=== PATIENT | female | born 1960 | race Caucasian/White ===

== ENCOUNTER 2020-08-08 11:26 | Inpatient (IN) ==
[2020-08-11] MEDS ORDERED: Ondansetron 4 MG/2 ML VIAL IVP PRN (15:25)
[2020-08-11] MEDS ORDERED: Mag Hydrox/Al Hydrox/Simeth 30 ML UDC PO PRN (15:25)
[2020-08-11] MEDS ORDERED: MOM Conc 10 ML UD.LIQ PO PRN (15:25)
[2020-08-11] MEDS ORDERED: Naloxone 0.4 MG/ML INJ IVP PRN (15:25)
[2020-08-11] MEDS ORDERED: Lidocaine TOPICAL Soln 50 ML BOTTLE TP PRN (15:38)
[2020-08-11] MEDS ORDERED: Sennosides 8.6 MG TABLET PO PRN (15:38)
[2020-08-11] MEDS: OXcarbazepine 150 MG TABLET PO SCH (20:53)
[2020-08-11] MEDS: traZODone 50 MG TABLET PO SCH (20:53)
[2020-08-11] MEDS: Melatonin 3 MG TABLET PO PRN (20:53)
[2020-08-11] MEDS: Acetaminophen 325 MG TABLET PO PRN (20:53)
[2020-08-12] MEDS: *HR* Enoxaparin 40 MG/0.4 ML SYRINGE SQ SCH (04:21)
[2020-08-12 05:01] LABS: Basophils % 0.6 %; Eosinophils # 0.2 K/mcL (0.0-0.6); Eosinophils % 3.4 %; Hematocrit 25.4 % (35.3-44.9); Hemoglobin 8.1 g/dL (11.5-15.4); Immature Granulocytes % 0.6 % (0-4); Lymphocytes # 1.5 K/mcL (0.6-4.6); Lymphocytes % 21.4 %; Mean Corpuscular HGB Conc 31.9 g/dL (31.6-35.5); Mean Corpuscular Hemoglobin 30.9 pg (28.0-33.3); Mean Corpuscular Volume 96.9 fL (83.0-100.0); Monocytes # 0.7 K/mcL (0.0-1.3); Monocytes % 9.8 %; Neutrophils # 4.4 K/mcL (1.6-8.9); Platelet Count 220 K/mcL (140-400); Red Blood Count 2.62 M/mcL (3.82-4.97); Red Cell Distribution Width 17.2 % (11.5-14.5); Segmented Neutrophils % 64.2 %; White Blood Count 6.9 K/mcL (4.3-11.1)
[2020-08-12 05:04] LABS: INR 1.1; Prothrombin Time 12.5 Seconds (9.4-12.1)
[2020-08-12 05:14] LABS: Albumin 3.7 g/dL (3.5-5.7); Albumin/Globulin Ratio 1.8 (1.1-2.2); Bilirubin,Total 0.6 mg/dL (0.3-1.0); Calcium 9.3 mg/dL (8.6-10.3); Globulin 2.1 g/dL (2.4-3.5); Magnesium 1.9 mg/dL (1.6-2.6); Phosphorous 5.3 mg/dL (2.7-4.5); Potassium 4.6 mEq/L (3.5-5.1); Total Protein 5.8 g/dL (6.4-8.9)
[2020-08-12] MEDS: OXcarbazepine 150 MG TABLET PO SCH ×2 (08:25→21:29)
[2020-08-12] MEDS: Torsemide 20 MG TABLET PO SCH (08:25)
[2020-08-12] MEDS: Metoprolol XL (24 HR) Succ 50 MG TAB.ER.24H PO SCH (08:25)
[2020-08-12] MEDS: Ascorbic Acid 500 MG TABLET PO SCH (08:26)
[2020-08-12] MEDS: Aspirin Enteric Coated 81 MG Tablet PO SCH (08:26)
[2020-08-12 08:55] LABS: Estimated Average Glucose 105 mg/dl; Hemoglobin A1C 5.3 %
[2020-08-12] MEDS: Ondansetron ODT 4 MG TAB.RAPDIS SL PRN (10:54)
[2020-08-12] MEDS: *HR* HYDROcodone/Acet 5/325 mg TABLET PO PRN (17:03)
[2020-08-12] MEDS: Melatonin 3 MG TABLET PO PRN ×2 (21:29→21:30)
[2020-08-12] MEDS: Acetaminophen 325 MG TABLET PO PRN (21:30)
[2020-08-12] MEDS: traZODone 50 MG TABLET PO SCH (21:30)
[2020-08-12 23:31] LABS: Bilirubin,Urine Negative (Negative); Blood,Urine Negative (Negative); Clarity,Urine Slightly Cloudy (Clear); Glucose,Urine (UA) Normal (Normal); Ketones,Urine Negative (Negative); Leukocyte Esterase,Urine Negative (Negative); Nitrite,Urine Negative (Negative); Protein,Urine Negative (Neg-Trace); Specific Gravity,Urine 1.015 (1.010-1.025); Urobilinogen,Urine Normal (Normal)
[2020-08-12 23:32] LABS: Color,Urine Yellow (Yellow)
[2020-08-13] MEDS: *HR* Enoxaparin 40 MG/0.4 ML SYRINGE SQ SCH (04:44)
[2020-08-13] MEDS: Ondansetron ODT 4 MG TAB.RAPDIS SL PRN (07:45)
[2020-08-13] MEDS: OXcarbazepine 150 MG TABLET PO SCH ×2 (07:46→21:14)
[2020-08-13] MEDS: Torsemide 20 MG TABLET PO SCH (07:46)
[2020-08-13] MEDS: Aspirin Enteric Coated 81 MG Tablet PO SCH (07:47)
[2020-08-13] MEDS: Ascorbic Acid 500 MG TABLET PO SCH (07:47)
[2020-08-13] MEDS: Metoprolol XL (24 HR) Succ 50 MG TAB.ER.24H PO SCH (07:47)
[2020-08-13] MEDS: Ondansetron ODT 4 MG TAB.RAPDIS PO PRN (20:21)
[2020-08-13] MEDS: traZODone 50 MG TABLET PO SCH (21:14)
[2020-08-13] MEDS: Melatonin 3 MG TABLET PO PRN ×2 (21:14)
[2020-08-13] MEDS: Acetaminophen 325 MG TABLET PO PRN (21:14)
[2020-08-14] MEDS: *HR* Enoxaparin 40 MG/0.4 ML SYRINGE SQ SCH (05:00)
[2020-08-14] MEDS: Torsemide 20 MG TABLET PO SCH (08:29)
[2020-08-14] MEDS: OXcarbazepine 150 MG TABLET PO SCH ×2 (08:29→20:59)
[2020-08-14] MEDS: Aspirin Enteric Coated 81 MG Tablet PO SCH (08:30)
[2020-08-14] MEDS: Metoprolol XL (24 HR) Succ 50 MG TAB.ER.24H PO SCH (08:30)
[2020-08-14] MEDS: Ascorbic Acid 500 MG TABLET PO SCH (08:30)
[2020-08-14] MEDS: Ondansetron ODT 4 MG TAB.RAPDIS PO PRN ×2 (08:37→17:39)
[2020-08-14] MEDS: Acetaminophen 325 MG TABLET PO PRN ×2 (13:42→21:00)
[2020-08-14] MEDS: traZODone 50 MG TABLET PO SCH (21:00)
[2020-08-14] MEDS: Melatonin 3 MG TABLET PO PRN ×2 (21:00)
[2020-08-15] MEDS: *HR* Enoxaparin 40 MG/0.4 ML SYRINGE SQ SCH (05:29)
[2020-08-15] MEDS: Torsemide 20 MG TABLET PO SCH (09:06)
[2020-08-15] MEDS: Ascorbic Acid 500 MG TABLET PO SCH (09:06)
[2020-08-15] MEDS: OXcarbazepine 150 MG TABLET PO SCH ×2 (09:06→20:51)
[2020-08-15] MEDS: Aspirin Enteric Coated 81 MG Tablet PO SCH (09:07)
[2020-08-15] MEDS: Metoprolol XL (24 HR) Succ 50 MG TAB.ER.24H PO SCH (09:07)
[2020-08-15] MEDS: Ondansetron ODT 4 MG TAB.RAPDIS PO PRN ×2 (09:17→18:25)
[2020-08-15] MEDS: traZODone 50 MG TABLET PO SCH (20:52)
[2020-08-16] MEDS: *HR* Enoxaparin 40 MG/0.4 ML SYRINGE SQ SCH (05:36)
[2020-08-16] MEDS: Ondansetron ODT 4 MG TAB.RAPDIS PO PRN ×2 (08:32→18:11)
[2020-08-16] MEDS: Torsemide 20 MG TABLET PO SCH (08:33)
[2020-08-16] MEDS: Metoprolol XL (24 HR) Succ 50 MG TAB.ER.24H PO SCH (08:33)
[2020-08-16] MEDS: Ascorbic Acid 500 MG TABLET PO SCH (08:34)
[2020-08-16] MEDS: OXcarbazepine 150 MG TABLET PO SCH ×2 (08:34→20:59)
[2020-08-16] MEDS: Aspirin Enteric Coated 81 MG Tablet PO SCH (08:34)
[2020-08-16] MEDS: *HR* HYDROcodone/Acet 5/325 mg TABLET PO PRN (14:55)
[2020-08-16] MEDS: traZODone 50 MG TABLET PO SCH (20:59)
[2020-08-17] MEDS: *HR* Enoxaparin 40 MG/0.4 ML SYRINGE SQ SCH (05:21)
[2020-08-17] MEDS: Aspirin Enteric Coated 81 MG Tablet PO SCH (10:17)
[2020-08-17] MEDS: Metoprolol XL (24 HR) Succ 50 MG TAB.ER.24H PO SCH (10:17)
[2020-08-17] MEDS: OXcarbazepine 150 MG TABLET PO SCH ×2 (10:17→21:21)
[2020-08-17] MEDS: Torsemide 20 MG TABLET PO SCH (10:17)
[2020-08-17] MEDS: Ascorbic Acid 500 MG TABLET PO SCH (10:18)
[2020-08-17] MEDS: Ondansetron ODT 4 MG TAB.RAPDIS PO PRN (10:21)
[2020-08-17] MEDS: Ondansetron ODT 4 MG TAB.RAPDIS SL PRN (17:43)
[2020-08-17] MEDS: traZODone 50 MG TABLET PO SCH (21:21)
[2020-08-18] MEDS: *HR* Enoxaparin 40 MG/0.4 ML SYRINGE SQ SCH (05:23)
[2020-08-18 07:35] LABS: Hematocrit 27.2 % (35.3-44.9); Hemoglobin 8.5 g/dL (11.5-15.4); Mean Corpuscular HGB Conc 31.3 g/dL (31.6-35.5); Mean Corpuscular Hemoglobin 30.5 pg (28.0-33.3); Mean Corpuscular Volume 97.5 fL (83.0-100.0); Mean Platelet Volume 9.7 fL (9.4-12.4); Platelet Count 300 K/mcL (140-400); Red Blood Count 2.79 M/mcL (3.82-4.97); Red Cell Distribution Width 16.2 % (11.5-14.5)
[2020-08-18 07:58] LABS: Albumin 3.6 g/dL (3.5-5.7); Albumin/Globulin Ratio 1.8 (1.1-2.2); Bilirubin,Total 0.5 mg/dL (0.3-1.0); Calcium 9.1 mg/dL (8.6-10.3); Potassium 3.3 mEq/L (3.5-5.1); Total Protein 5.6 g/dL (6.4-8.9)
[2020-08-18] MEDS: Metoprolol XL (24 HR) Succ 50 MG TAB.ER.24H PO SCH (08:14)
[2020-08-18] MEDS: Aspirin Enteric Coated 81 MG Tablet PO SCH (08:15)
[2020-08-18] MEDS: Ascorbic Acid 500 MG TABLET PO SCH (08:16)
[2020-08-18] MEDS: Torsemide 20 MG TABLET PO SCH (08:16)
[2020-08-18] MEDS: Ondansetron ODT 4 MG TAB.RAPDIS PO PRN (08:20)
[2020-08-18] MEDS ORDERED: *HR* LORazepam 0.5 MG TABLET PO PRN (13:46)
[2020-08-18] MEDS: OXcarbazepine 150 MG TABLET PO SCH ×2 (13:49→20:41)
[2020-08-18] MEDS: traZODone 50 MG TABLET PO SCH (20:41)
[2020-08-18] MEDS: Acetaminophen 325 MG TABLET PO PRN (23:54)
[2020-08-19] MEDS: *HR* Enoxaparin 40 MG/0.4 ML SYRINGE SQ SCH (05:46)
[2020-08-19] MEDS: Ascorbic Acid 500 MG TABLET PO SCH (09:08)
[2020-08-19] MEDS: OXcarbazepine 150 MG TABLET PO SCH ×2 (09:12→20:56)
[2020-08-19] MEDS: Torsemide 20 MG TABLET PO SCH (09:12)
[2020-08-19] MEDS: Aspirin Enteric Coated 81 MG Tablet PO SCH (09:12)
[2020-08-19] MEDS: Metoprolol XL (24 HR) Succ 50 MG TAB.ER.24H PO SCH (09:12)
[2020-08-19] MEDS: Ondansetron ODT 4 MG TAB.RAPDIS PO PRN (09:15)
[2020-08-19] MEDS: traZODone 50 MG TABLET PO SCH (20:57)
[2020-08-20] MEDS: Acetaminophen 325 MG TABLET PO PRN (00:46)
[2020-08-20] MEDS: *HR* Enoxaparin 40 MG/0.4 ML SYRINGE SQ SCH (06:00)
[2020-08-20] MEDS: Ascorbic Acid 500 MG TABLET PO SCH (09:21)
[2020-08-20] MEDS: *HR* HYDROcodone/Acet 5/325 mg TABLET PO PRN ×2 (10:00→21:51)
[2020-08-20] MEDS: Torsemide 20 MG TABLET PO SCH ×2 (10:00→10:35)
[2020-08-20] MEDS: Ondansetron ODT 4 MG TAB.RAPDIS PO PRN (10:00)
[2020-08-20] MEDS: Aspirin Enteric Coated 81 MG Tablet PO SCH (10:01)
[2020-08-20] MEDS: Metoprolol XL (24 HR) Succ 50 MG TAB.ER.24H PO SCH (10:01)
[2020-08-20] MEDS: OXcarbazepine 150 MG TABLET PO SCH ×2 (10:01→21:51)
[2020-08-20] MEDS: traZODone 50 MG TABLET PO SCH (21:51)
[2020-08-20] MEDS: Melatonin 3 MG TABLET PO PRN (21:52)
[2020-08-21] MEDS: *HR* HYDROcodone/Acet 5/325 mg TABLET PO PRN (04:53)
[2020-08-21] MEDS: *HR* Enoxaparin 40 MG/0.4 ML SYRINGE SQ SCH (04:54)
[2020-08-21] MEDS: Ondansetron ODT 4 MG TAB.RAPDIS PO PRN (09:16)
[2020-08-21] MEDS: Aspirin Enteric Coated 81 MG Tablet PO SCH (09:17)
[2020-08-21] MEDS: Torsemide 20 MG TABLET PO SCH (09:17)
[2020-08-21] MEDS: OXcarbazepine 150 MG TABLET PO SCH ×2 (09:17→20:22)
[2020-08-21] MEDS: Metoprolol XL (24 HR) Succ 50 MG TAB.ER.24H PO SCH (09:17)
[2020-08-21] MEDS: traZODone 50 MG TABLET PO SCH (20:22)
[2020-08-21] MEDS: Melatonin 3 MG TABLET PO PRN (20:22)
[2020-08-21] MEDS: Acetaminophen 325 MG TABLET PO PRN (20:23)
[2020-08-22] MEDS: *HR* Enoxaparin 40 MG/0.4 ML SYRINGE SQ SCH (06:23)
[2020-08-22] MEDS: Ondansetron ODT 4 MG TAB.RAPDIS PO PRN (09:16)
[2020-08-22] MEDS: Aspirin Enteric Coated 81 MG Tablet PO SCH (09:16)
[2020-08-22] MEDS: Metoprolol XL (24 HR) Succ 50 MG TAB.ER.24H PO SCH (09:16)
[2020-08-22] MEDS: OXcarbazepine 150 MG TABLET PO SCH ×2 (09:17→20:43)
[2020-08-22] MEDS: Torsemide 20 MG TABLET PO SCH (09:17)
[2020-08-22] MEDS: traZODone 50 MG TABLET PO SCH (20:43)
[2020-08-22] MEDS: Acetaminophen 325 MG TABLET PO PRN (20:44)
[2020-08-22] MEDS: Melatonin 3 MG TABLET PO PRN (20:44)
[2020-08-23] MEDS: *HR* Enoxaparin 40 MG/0.4 ML SYRINGE SQ SCH (05:43)
[2020-08-23 06:55] VITALS: BP 107/71
[2020-08-23] MEDS: Aspirin Enteric Coated 81 MG Tablet PO SCH (09:48)
[2020-08-23] MEDS: Metoprolol XL (24 HR) Succ 50 MG TAB.ER.24H PO SCH (09:49)
[2020-08-23] MEDS: Torsemide 20 MG TABLET PO SCH (09:49)
[2020-08-23] MEDS: OXcarbazepine 150 MG TABLET PO SCH (09:49)
[2020-08-23] MEDS: *HR* HYDROcodone/Acet 5/325 mg TABLET PO PRN (12:25)
[2020-08-23] MEDS: Ondansetron ODT 4 MG TAB.RAPDIS PO PRN (14:15)
== END 2020-08-23 19:10 | disposition home health service (06) | DRG 945 ==
LOC: INPGRE 08-11 12:39
PROVIDERS: ADMIT Family Medicine; ATTEND Family Medicine